=== PATIENT | male | born 1985 | race Caucasian/White ===

== ENCOUNTER 2024-06-05 14:01 | Outpatient (AMB) | payer BC, SELFPAY ==
--- NOTE | 2024-06-05 14:06 | A.OFFPC_ITS ---
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 Intake Note: patient here for new patient appointment Loan Clerk Required: No Allergies bactrum Allergy (Unknown, Uncoded 06/05/24 14:11) Hives Tobacco use date assessed: 06/05/24 Dental Screening Dental Screen Date: 06/05/24 Did you have a dental visit in the last 12 months?: No Did you have a dental problem in the last 6 months where you did not have access to dental care?: No Was dental information given to patient?: Patient declined HPI HPI Comments History of Present Illness Details The patient is a 38 y/o male with a past medical history of IBS/IBD presenting to [facility] GI: Follows with GI. He underwent double endoscopy in October. Colonoscopy was normal. He was found to have ulcer on endoscopy. The ulcer healed with natural remedies however they did find barretts and EOE. He was evaluated in [place] [facility] i n Oct for worsening abdominal pain. Intermittently must miss work if symptoms flare ROS CONSTITUTIONAL: Denies weight loss, fever and chills. HEENT: Denies changes in vision and hearing. RESPIRATORY: Denies SOB and cough. CV: Denies palpitations and CP GI: see HPI : Denies dysuria and urinary frequency. MSK: Denies new myalgia and joint pain. SKIN: Denies rash and pruritus. NEUROLOGICAL: Denies headache PSYCHIATRIC: Denies recent changes in mood. PHYSICAL EXAM: GENERAL: Alert and oriented x 3. NAD EYES: EOMI. Anicteric. HENT: Moist mucous membranes. No scleral icterus. No cervical lymphadenopathy. LUNGS: Clear to auscultation bilaterally. CARDIOVASCULAR: Regular rate and rhythm. No murmur. No JVD. ABDOMEN: Soft, non-tender +bs EXTREMITIES: No edema. Non-tender. SKIN: No rashes or lesions. Warm. NEUROLOGIC: No focal neurological deficits. CN II-XII grossly intact PSYCHIATRIC: Cooperative. Appropriate mood and affect [facility] Medical History (Updated 06/10/24 @ 10:56 by Charlee Chappell MD) Shingles Peptic ulcer Surgical History (Updated 06/05/24 @ 14:22 by Vanessa Moncada) History of placement of ear tubes Family History (Updated 06/05/24 @ 14:24 by Vanessa Moncada) Father Asthma High blood pressure High cholesterol Diabetes Mother High blood pressure High cholesterol Diabetes Brother Testicular cancer Social History Housing: House Patient Tobacco Use Status: Never used Tobacco e-Cigarette/Vaping Use: Never Used Second Hand Smoke Exposure: No service: No Current occupational status: employed Current occupation: postal service Current occupational exposures/hazards: No Cognitive needs: No Hearing needs: Yes Vision needs: No Questionnaire PHQ-9 Over the last 2 weeks, how often have you been bothered by any of the following problems? 1. Little interest or pleasure in doing things: not at all 2. Feeling down, depressed, or hopeless: not at all 3. Trouble falling or staying asleep, or sleeping too much: not at all 4. Feeling tired or having little energy: not at all 5. Poor appetite or overeating: not at all 6. Feeling bad about yourself - or that you are a failure or have let yourself or your family down: not at all 7. Trouble concentrating on things, such as reading the newspaper or watching television: not at all 8. Moving or speaking so slowly that other people could have noticed. Or the opposite - being so fidgety or restless that you have been moving around a lot more than usual: not at all 9. Thoughts that you would be better off or of hurting yourself in some way: not at all Total score: 0 Depression Screening Interpretation: Negative Depression Screening Done: Yes 23762 - PHQ-9 Billing: Yes Source: Developed by Drs. Last Jacob, Maria Del Rosario Hines, Lul Kevin and colleagues, with an educational staci from [employer]. Thrive Questionnaire Date Thrive assessed: 06/05/24 I am a: Patient What is your living situation today?: I have a steady place to live Within the past 12 months, did the food you bought not last and you didn't have the money to get more?: Never true Within the past 12 months, did you worry whether your food would run out before you got money to buy more?: Never true Do you have trouble paying for medicines?: No Do you have trouble getting transportation to medical appointments?: No Do you have trouble paying your heating and electricity bill?: No Do you have trouble taking care of your child, family member or friend?: No Do you have trouble with day-to-day activities such as bathing, preparing meals, shopping, managing finances, etc.?: No Are you currently unemployed and looking for a job?: No Are you interested in more education?: No Please select the resources that you would like help with: None Currently or been in a relationship where the following occur: No concerns reported THRIVE Score: 0 AUDIT C Alcohol Use Questionnaire (AUDIT-C) 1. How often do you have a drink containing alcohol?: Never Total Score: 0 MOSHE-7 AMB Questionnaire MOSHE-7 Date MOSHE - 7 assessed: 06/05/24 Feeling nervous, anxious, or on edge: 0 = Not at all Not being able to stop or control worryin = Not at all Worrying too much about different things: 0 = Not at all Trouble relaxin = Not at all Being so restless that it is hard to sit still: 0 = Not at all Feeling afraid as if something awful might happen: 0 = Not at all Source: Developed by Drs. Last Jacob, Maria Del Rosario Hines, Lul Kevin and colleagues, with an educational staci from [employer]. MOSHE-7 Assessment Billing MOSHE-7 Assessment Tool: MOSHE-7 Assessment 33946 Physical exam (Primary Care) Vital Signs: Last Vital Signs Temp 98.0 F 06/05/24 14:18 Pulse 50 06/05/24 14:18 Resp 16 06/05/24 14:18 BP 114/60 06/05/24 14:18 Pulse Ox 97 06/05/24 14:18 Oxygen Delivery Method Room Air 06/05/24 14:18 BMI result Body Mass Index 26.0 Tobacco/Smoking Status: Tobacco use Status Tobacco use date assessed 06/05/24 06/05/24 14:18 Patient Tobacco Use Status Never used Tobacco 06/05/24 14:18 e-Cigarette/Vaping Use Never Used 06/05/24 14:18 PHQ-9: PHQ-9 Score PHQ-9: Total score 0 06/10/24 10:57 Depression Screening Interpretation: Negative Thrive Assessment: Date of Thrive Assessment Date Thrive assessed 06/05/24 06/05/24 14:20 Currently or been in a relationship where the following occur: No concerns reported Assessment and Plan Assessment & Plan (1) Establishing care with new doctor, encounter for: Code(s): Z76.89 - Persons encountering health services in other specified circumstances Plan: 39 y/o to establish care. pmh, surgical, social and family history reviewed. (2) History of peptic ulcer: Code(s): Z87.11 - Personal history of peptic ulcer disease Plan: recommend ppi therapy. Patient treating naturally (3) Barretts esophagus: Code(s): K22.70 - Millan's esophagus without dysplasia Qualifiers: Millan's esophagus type: with dysplasia of unspecified degree Qualified Code(s): K22.719 - Millan's esophagus with dysplasia, unspecified Plan: repeat endoscopy at one year Orders: Orders UA and rflx microscopic 06/05/24 K22.70 - Millan's esophagus without dysplasia, Z13.0 - Encounter for screening for diseases of the blood and blood- forming organs and certain disorders involving the immune mechanism, Z13.220 - Encounter for screening for lipoid disorders, Z13.228 - Encounter for screening for other metabolic disorders, Z87.11 - Personal history of peptic ulcer disease Lipid Panel 06/05/24 K22.70 - Millan's esophagus without dysplasia, Z13.0 - Encounter for screening for diseases of the blood and blood-forming organs and certain disorders involving the immune mechanism, Z13.220 - Encounter for screening for lipoid disorders, Z13.228 - Encounter for screening for other metabolic disorders, Z87.11 - Personal history of peptic ulcer disease Complete Blood Count Auto Diff 06/05/24 K22.70 - Millan's esophagus without dysplasia, Z13.0 - Encounter for screening for diseases of the blood and blood- forming organs and certain disorders involving the immune mechanism, Z13.220 - Encounter for screening for lipoid disorders, Z13.228 - Encounter for screening for other metabolic disorders, Z87.11 - Personal history of peptic ulcer disease Comprehensive Met. Panel 06/05/24 K22.70 - Millan's esophagus without dysplasia, Z13.0 - Encounter for screening for diseases of the blood and blood-forming organs and certain disorders involving the immune mechanism, Z13.220 - Encounter for screening for lipoid disorders, Z13.228 - Encounter for screening for other metabolic disorders, Z87.11 - Personal history of peptic ulcer disease TSH reflex Free T4 06/05/24 K22.70 - Millan's esophagus without dysplasia, Z13.0 - Encounter for screening for diseases of the blood and blood-forming organs and certain disorders involving the immune mechanism, Z13.220 - Encounter for screening for lipoid disorders, Z13.228 - Encounter for screening for other metabolic disorders, Z87.11 - Personal history of peptic ulcer disease Coding Level of Care Code New Pt Level 4 (38018) Diagnoses Establishing care with new doctor, encounter for Z76.89 History of peptic ulcer Z87.11 Millan's esophagus with dysplasia K22.719 Millan's esophagus type: with dysplasia of unspecified degree Additional Codes MOSHE-7 Assessment Billing - MOSHE-7 Assessment Tool: MOSHE-7 Assessment 78205 ([id number])
[2024-06-05 14:18] VITALS: BP 114/60; PULSE 50; RESP 16; TEMP 36.7; O2SAT 97; BMI 26.0
== END 2024-06-05 14:56 | disposition home or self-care (01) ==
PROVIDERS: Visit Provider Internal Medicine
DX: K22.719 Barrett's esophagus with dysplasia, unspecified (principal); Z76.89 Persons encountering health services in other specified circumstances; Z87.11 Personal history of peptic ulcer disease
CPT/HCPCS: 99204

== ENCOUNTER 2024-12-11 10:04 | Outpatient (AMB) | payer BC, SELFPAY ==
--- NOTE | 2024-12-11 10:16 | MHC.PC.OV ---
Vital Signs 12/11/24 10:19 Height 6 ft 1 in Weight 198 lb 6 oz BMI 26.2 BP 100/64 Blood Pressure Location Lt brachial Position Sitting Respiration 16 Pulse 62 Pulse Source Pulse Oximeter Pulse Oximetry (%) 98 Oxygen Delivery Method Room Air Intake Visit Reasons: cpe Intake Note: Physical Surg Tech Required: No Allergies bactrum Allergy (Unknown, Uncoded 12/11/24 10:17) Hives Medication List - Last Reconciled 12/11/24 by Charlee Chappell MD No Known Home Meds Tobacco use date assessed: 12/11/24 Dental Screening Dental Screen Date: 06/05/24 HPI HPI Comments History of Present Illness Details The patient is a 39 y/o male with a past medical history of IBS/IBD presenting for CPE. GI: Follows with GI. He underwent double endoscopy in October. Colonoscopy was normal. He was found to have ulcer on endoscopy. The ulcer healed with natural remedies however they did find barretts and EOE. He was evaluated in [place] ER in Oct for worsening abdominal pain. Intermittently must miss work if symptoms flare Golfing frequently. Follows with a sports medicine doctor. Watches testosterone levels as history of anabolic steroid use. Dental UTD Declines Tdap ROS CONSTITUTIONAL: Denies weight loss, fever and chills. HEENT: Denies changes in vision and hearing. RESPIRATORY: Denies SOB and cough. CV: Denies palpitations and CP GI: see HPI : Denies dysuria and urinary frequency. MSK: Denies new myalgia and joint pain. SKIN: Denies rash and pruritus. NEUROLOGICAL: Denies headache PSYCHIATRIC: Denies recent changes in mood. PHYSICAL EXAM: GENERAL: Alert and oriented x 3. NAD EYES: EOMI. Anicteric. HENT: Moist mucous membranes. No scleral icterus. No cervical lymphadenopathy. LUNGS: Clear to auscultation bilaterally. CARDIOVASCULAR: Regular rate and rhythm. No murmur. No JVD. ABDOMEN: Soft, non-tender +bs EXTREMITIES: No edema. Non-tender. SKIN: No rashes or lesions. Warm. NEUROLOGIC: No focal neurological deficits. CN II-XII grossly intact PSYCHIATRIC: Cooperative. Appropriate mood and affect [facility] Medical History Shingles Peptic ulcer Surgical History Hx of colonoscopy H/O endoscopy History of placement of ear tubes Family History Father Asthma High blood pressure High cholesterol Diabetes Mother High blood pressure High cholesterol Diabetes Brother Testicular cancer Social History Housing: House Alcohol intake: never Patient Tobacco Use Status: Never used Tobacco e-Cigarette/Vaping Use: Never Used Second Hand Smoke Exposure: No service: No Current occupational status: employed Current occupation: postal service Current occupational exposures/hazards: No Cognitive needs: No Hearing needs: Yes (Hearing loss both ears.) Vision needs: No Questionnaire PHQ-9 Over the last 2 weeks, how often have you been bothered by any of the following problems? 1. Little interest or pleasure in doing things: not at all 2. Feeling down, depressed, or hopeless: not at all 3. Trouble falling or staying asleep, or sleeping too much: not at all 4. Feeling tired or having little energy: not at all 5. Poor appetite or overeating: not at all 6. Feeling bad about yourself - or that you are a failure or have let yourself or your family down: not at all 7. Trouble concentrating on things, such as reading the newspaper or watching television: not at all 8. Moving or speaking so slowly that other people could have noticed. Or the opposite - being so fidgety or restless that you have been moving around a lot more than usual: not at all 9. Thoughts that you would be better off or of hurting yourself in some way: not at all Total score: 0 Depression Screening Interpretation: Negative Depression Screening Done: Yes 54180 - PHQ-9 Billing: Yes Source: Developed by Drs. Last Jacob, Maria Del Rosario Hines, Lul Kevin and colleagues, with an educational staci from [employer]. Thrive Questionnaire Date Thrive assessed: 12/04/24 I am a: Patient What is your living situation today?: I have a steady place to live Within the past 12 months, did the food you bought not last and you didn't have the money to get more?: Never true Within the past 12 months, did you worry whether your food would run out before you got money to buy more?: Never true Do you have trouble paying for medicines?: No Do you have trouble getting transportation to medical appointments?: No Do you have trouble paying your heating and electricity bill?: No Do you have trouble taking care of your child, family member or friend?: No Do you have trouble with day-to-day activities such as bathing, preparing meals, shopping, managing finances, etc.?: No Are you currently unemployed and looking for a job?: No Are you interested in more education?: No Please select the resources that you would like help with: None Currently or been in a relationship where the following occur: No concerns reported THRIVE Score: 0 AUDIT C Alcohol Use Questionnaire (AUDIT-C) 1. How often do you have a drink containing alcohol?: Never 3. How often do you have six or more drinks on one occasion?: Never Total Score: 0 MOSHE-7 AMB Questionnaire MOSHE-7 Date MOSHE - 7 assessed: 12/11/24 Feeling nervous, anxious, or on edge: 0 = Not at all Not being able to stop or control worryin = Not at all Worrying too much about different things: 0 = Not at all Trouble relaxin = Not at all Being so restless that it is hard to sit still: 0 = Not at all Becoming easily annoyed or irritable: 0 = Not at all Feeling afraid as if something awful might happen: 0 = Not at all Total MOSHE-7 score (0-4 normal; 5-9 mild; 10-14 moderate; 15-21 severe): 0 Source: Developed by Drs. Last Jacob, Maria Del Rosario Hines, Lul Kevin and colleagues, with an educational staci from [employer]. MOSHE-7 Assessment Billing MOSHE-7 Assessment Tool: MOSHE-7 Assessment 08576 Physical exam (Primary Care) Vital Signs: Last Vital Signs Pulse 62 12/11/24 10:19 Resp 16 12/11/24 10:19 BP 100/64 12/11/24 10:19 Pulse Ox 98 12/11/24 10:19 Oxygen Delivery Method Room Air 12/11/24 10:19 BMI result Body Mass Index 26.2 Tobacco/Smoking Status: Tobacco use Status Tobacco use date assessed 12/11/24 12/11/24 10:22 Patient Tobacco Use Status Never used Tobacco 12/11/24 10:22 e-Cigarette/Vaping Use Never Used 12/11/24 10:22 PHQ-9: PHQ-9 Score PHQ-9: Total score 0 12/11/24 10:26 Depression Screening Interpretation: Negative Thrive Assessment: Date of Thrive Assessment Date Thrive assessed 12/04/24 12/11/24 10:22 Currently or been in a relationship where the following occur: No concerns reported Coding Level of Care Code Est Pt Prev Care 18-39y(02133) Diagnoses Physical exam Z00.00 Additional Codes MOSHE-7 Assessment Billing - MOSHE-7 Assessment Tool: MOSHE-7 Assessment 75754 ([id number]) PHQ-9 - 82408 - PHQ-9 Billing: Yes ([id number]) Assessment & Plan Assessment & Plan (1) Physical exam: Code(s): Z00.00 - Encounter for general adult medical examination without abnormal findings Category: Medical Plan: 39 y/o for physical exam Interval history reviewed Labs ordered. Declines Tdap Orders: Orders Testosterone, Free/Total Today Z92.241 - Personal history of systemic steroid therapy
[2024-12-11 10:19] VITALS: BP 100/64; PULSE 62; RESP 16; O2SAT 98; BMI 26.2
--- OUTSIDE RECORDS SUMMARY | 2024-12-11 11:26 | XMS_ITS ---
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 active 2024-06-25 ProblemAct [facility] Seasonal allergic rhinitis due to pollen active 2024-06-25 ProblemAct [facility] Allergy to avocado active 2024-06-25 ProblemAct [facility] Allergic rhinitis due to animal dander active 2024-06-25 ProblemAct [facility] Immunizations Vaccine Date Source Lot Number Status Tdap 02/25/2018 CCT [id number] completed Encounters Encounter Type Encounter Reason Primary Diagnosis Location Date Ambulatory [facility] 06/25/2024 Ambulatory ELEVATED BILIRUBIN ELEVATED BILIRUBIN Pro [facility] 11/26/2023 Ambulatory GI Consult [facility] [place] 12/07/2022 Care Team Organization Name Specialty Phone Email Start Date End [facility] 06/25/2024 [facility] Ch[facility]ell [facility] 06/25/2024 [facility] 11/21/2023 03/10/[address] [place] [address] [facility] 11/21/2023 [facility] 11/09/2023 [facility] 12/13/2022 12/13/2022 [facility] BENITO BRIGHT Primary Care 12/07/202211/24 [facility] BENITO BRIGTH Primary Care 12/07/202211/24 [facility] BENITO BRIGHT Primary Care 12/07/2022
--- OUTSIDE RECORDS SUMMARY | 2024-12-11 11:26 | XMS_ITS | Clinical Summary ---
Author Organization [facility] Address [address] [place] [address] Care Team Providers Care Managed Care Manager Name Role Phone Charlee Chappell MD Primary Care Provider [phone] Allergies Active Allergy Reactions Criticality Noted Date Comments Sulfamethoxazole-Trimethoprim 2023 Sulfa Antibiotics 10/31/2023 Medications Medication Sig Dispensed Refills Start Date End Date Status polyethylene glycol 3350 (SUFLAVE) 178.7 g solution Take 2,000 mL (1 kit total) by mouth See admin instructions. 1 kit 0 10/31/2023 Active Additional Information Patient not taking.Reason: Other, Reported on 12/26/2023 bisacodyl (Dulcolax) 5 MG EC tablet Take 1 tablet (5 mg total) by mouth daily as needed for up to 4 doses. 4 tablet 0 10/31/2023 Active Additional Information Patient not taking.Reason: Other, Reported on 12/26/2023 Social History Tobacco Use Types Packs/Day Years Used Date Smoking Tobacco: Never Smokeless Tobacco: Never Tobacco Cessation:Counseling Given: Not Answered Sex and Gender Information Value Date Recorded Sex Assigned at Not on file Gender Identity Not on file Sexual Orientation Not on file Job Start Date Occupation Industry Not on file Not on file Not on file Last Filed Vital Signs Vital Sign Reading Time Taken Comments Blood Pressure 110/72 06/12/2024 3:09 PM EDT Pulse 90 06/12/2024 3:09 PM EDT Temperature - - Respiratory Rate - - Oxygen Saturation 99% 06/12/2024 3:09 PM EDT Inhaled Oxygen Concentration - - Weight 89.8 kg (198 lb) 06/12/2024 3:09 PM EDT Height 185.4 cm (6' 1 ) 06/12/2024 3:09 PM EDT Body Mass Index 26.12 06/12/2024 3:09 PM EDT Plan of Treatment Health Maintenance Due Date Last Done Comments Hepatitis B Vaccines (1 of 3 - 3-dose series) 1987 Hepatitis C Screening 1987 COVID-19 Vaccine (#1) 1987 Depression Screening 1999 BMI Counseling 2005 Preventative Health Evaluation 2005 Influenza Vaccine (#1) 2024 DTap / Tdap / Td (2 - Td or Tdap) 02/26/2028 018 Pneumococcal Vaccine Aged Out No long er eligible based on patient's age to complete this topic RSV Ped < 20 months Aged Out No longe r eligible based on patient's age to complete this topic Care Teams Managed Care Manager Relationship Specialty Start Date End Date Charlee Chappell MD PCP - General Internal Medicine 06/12/24
--- OUTSIDE RECORDS SUMMARY | 2024-12-11 11:26 | XMS_ITS | Patient Health Record ---
Author Organization [facility] Address [address] [place] [address] Support Name Relationship Address Phone Antonio Wall Guarantor Unknown Reason For Referral No Information Plan Of Treatment No Information Insurance Providers Payer Name Payer Address Payer Phone Subscriber Number Group Number Insured Name Patient Relationship to Insured Coverage Start Date Coverage End Date CARES Act Antonio Wall Self - patient is the insured
--- OUTSIDE RECORDS SUMMARY | 2024-12-11 11:27 | XMS_ITS | Clinical Summary ---
Author Organization Formerly [facility] Address [address] [place] [address] Care Team Providers Care Picu Nurse Name Role Phone Unknown Unavailable Charlee Chappell MD Primary Care Provider [phone] Allergies Active Allergy Reactions Criticality Noted Date Comments Sulfa Antibiotics Hives,Shortness Of Breath,Rash/Dermatitis High 02/25/2018 Sulfamethoxazole-Trimethopri m Anaphylaxis,Hives,Shortne ss Of Breath,Rash/Dermatitis High 12/07/2022 Medications Medication Sig Dispensed Refills Start Date End Date Status EPINEPHrine 0.3 mg/0.3 mL IJ auto-injectionIndica tions:Allergy to avocado Inject 0.3 mL (0.3 mg total) into the thigh once as needed for allergic reaction. 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 06/25/2024 Allergic rhinitis due to dust mite 06/25/2024 Eosinophilic esophagitis 06/25/2024 Immunizations Name Administration Dates Next Due Tdap 02/25/2018 Family History Medical History Relation Name Comments Venom Allergy Brother Allergic rhinitis Father Asthma Father Diabetes Mother Kenya Wall Food Allergy Neg Hx Relation Name Status Comments Brother Father Mother Kenya Wall Social History Tobacco Use Types Packs/Day Years Used Date Smoking Tobacco: Never Smokeless Tobacco: Never Tobacco Cessation:Counseling Given: Not Answered Alcohol Use Standard Drinks/Week Comments Never 0 (1 standard drink = 0.6 oz pur e alcohol) AUDIT-C Answer Date Recorded Frequency of Alcohol Consumption Never 03/22/2018 Average Number of Drinks Not on file 018 Frequency of Binge Drinking Not on file 02/25 Sex and Gender Information Value Date Recorded Sex Assigned at Not on file Gender Identity Not on file Sexual Orientation Not on file Last Filed Vital Signs Vital Sign Reading Time Taken Comments Blood Pressure 126/58 02/25/2018 5:34 PM EDT Pulse 72 02/25/2018 5:34 PM EDT Temperature - - Respiratory Rate 18 02/25/2018 5:34 PM EDT Oxygen Saturation 98% 02/25/2018 5:34 PM EDT Inhaled Oxygen Concentration - - Weight 88.9 kg (196 lb) 06/25/2024 8:54 AM EDT Height 185.4 cm (6' 1 ) 06/25/2024 8:54 AM EDT Body Mass Index 25.86 06/25/2024 8:54 AM EDT Plan of Treatment Health Maintenance Due Date Last Done Comments Hepatitis C Virus Screening 1987 HIV Screening 2000 Hepatitis B Vaccines (1 of 3 - 19+ 3-dose series) 2006 Influenza Vaccine 04/26/2024 COVID-19 Vaccine ( - 2023-2 5 season) 2024 DTaP/Tdap/Td Vaccines (2 - T d or Tdap) 02/26/2028 02/25/2018 HPV Vaccines Aged Out No longer eligi ble based on patient's age to complete this topic Pneumococcal Vaccine: Pediat deborah (0-5 Years) and At-Risk Patients (6 to 49 Years) Aged Out No longer eligible b ased on patient's age to complete this topic Care Teams Picu Nurse Relationship Specialty Start Date End Date Charlee Chappell MD [address] [place] [address] CLIFTON Russell [phone] PCP - General Internal Medicine 06/25/24 Unknown Unknow Provider Address 12/06/22
== END 2024-12-11 10:44 | disposition home or self-care (01) ==
LOC: HO.HMCFM 10:04
PROVIDERS: PCP Internal Medicine; Visit Provider Internal Medicine
DX: Z00.00 Encounter for general adult medical examination without abnormal findings (principal)

== ENCOUNTER → 2024-12-11 10:04 | Outpatient (BNVA) | payer BC, SELFPAY | PROVIDERS: PCP Internal Medicine; Visit Provider Internal Medicine | DX: Z00.00 Encounter for general adult medical examination without abnormal findings (principal); Z92.241 Personal history of systemic steroid therapy | CPT/HCPCS: 96127 ==

== ENCOUNTER 2024-12-31 10:02 | Outpatient (AMB) | payer BC, SELFPAY ==
--- NOTE | 2024-12-31 10:12 | A.OFFPC_ITS ---
Vital Signs 12/31/24 10:15 Height 6 ft 1 in Weight 198 lb BMI 26.1 BP 112/64 Blood Pressure Location Lt brachial Position Sitting Respiration 16 Pulse 67 Pulse Source Pulse Oximeter Pulse Oximetry (%) 97 Oxygen Delivery Method Room Air Intake Visit Reasons: BNH L thumb stitches out Intake Note: Stitches out left thumb. Had 3 stitches put in 12/18/24. Director Sales And Marketing Required: No Allergies bactrum Allergy (Unknown, Uncoded 12/31/24 10:19) Hives Medication List - Last Reconciled 12/31/24 by Charlee Chappell MD No Known Home Meds Tobacco use date assessed: 12/31/24 Dental Screening Dental Screen Date: 06/05/24 HPI HPI Comments History of Present Illness Details The patient is a 39 y/o male with a past medical history of IBS/IBD presenting follow up Received stitches to left 2nd finger 12 days ago-3 stitches. One fell out since. Healing well GI: Follows with GI. He underwent double endoscopy in October. Colonoscopy was normal. He was found to have ulcer on endoscopy. The ulcer healed with natural remedies however they did find barretts and EOE. He was evaluated in [place] [facility] in Oct for worsening abdominal pain. Intermittently must miss work if symptoms flare Golfing frequently. Follows with a sports medicine doctor. Watches testosterone levels as history of anabolic steroid use. Dental UTD Declines Tdap ROS see HPI PHYSICAL EXAM: GENERAL: Alert and oriented x 3. NAD EYES: EOMI. Anicteric. HENT: Moist mucous membranes. No scleral icterus. No cervical lymphadenopathy. LUNGS: Clear to auscultation bilaterally. CARDIOVASCULAR: Regular rate and rhythm. No murmur. No JVD. ABDOMEN: Soft, non-tender +bs EXTREMITIES: No edema. Non-tender. SKIN: Well healed 1.0 cm lac of left second finger NEUROLOGIC: No focal neurological deficits. CN II-XII grossly intact PSYCHIATRIC: Cooperative. Appropriate mood and affect [facility] Medical History Shingles Peptic ulcer Surgical History Hx of colonoscopy H/O endoscopy History of placement of ear tubes Family History Father Asthma High blood pressure High cholesterol Diabetes Mother High blood pressure High cholesterol Diabetes Brother Testicular cancer Social History Housing: House Alcohol intake: never Patient Tobacco Use Status: Never used Tobacco e-Cigarette/Vaping Use: Never Used Second Hand Smoke Exposure: No service: No Current occupational status: employed Current occupation: postal service Current occupational exposures/hazards: No Cognitive needs: No Hearing needs: Yes (Hearing loss both ears.) Vision needs: No Questionnaire Thrive Questionnaire Date Thrive assessed: 12/04/24 I am a: Patient What is your living situation today?: I have a steady place to live Within the past 12 months, did the food you bought not last and you didn't have the money to get more?: Never true Within the past 12 months, did you worry whether your food would run out before you got money to buy more?: Never true Do you have trouble paying for medicines?: No Do you have trouble getting transportation to medical appointments?: No Do you have trouble paying your heating and electricity bill?: No Do you have trouble taking care of your child, family member or friend?: No Do you have trouble with day-to-day activities such as bathing, preparing meals, shopping, managing finances, etc.?: No Are you currently unemployed and looking for a job?: No Are you interested in more education?: No Please select the resources that you would like help with: None Currently or been in a relationship where the following occur: No concerns reported THRIVE Score: 0 MOSHE-7 AMB Questionnaire MOSHE-7 Date MOSHE - 7 assessed: 12/11/24 Source: Developed by Drs. Last Jacob, Maria Del Rosario Hines, Lul Kevin and colleagues, with an educational staci from [employer]. Physical exam (Primary Care) Vital Signs: Last Vital Signs Pulse 67 12/31/24 10:15 Resp 16 12/31/24 10:15 BP 112/64 12/31/24 10:15 Pulse Ox 97 12/31/24 10:15 Oxygen Delivery Method Room Air 12/31/24 10:15 BMI result Body Mass Index 26.1 Tobacco/Smoking Status: Tobacco use Status Tobacco use date assessed 12/31/24 12/31/24 10:19 Patient Tobacco Use Status Never used Tobacco 12/31/24 10:19 e-Cigarette/Vaping Use Never Used 12/31/24 10:19 Thrive Assessment: Date of Thrive Assessment Date Thrive assessed 12/04/24 12/31/24 10:13 Currently or been in a relationship where the following occur: No concerns reported Coding Level of Care Code Est Pt Level 3 (76933) Diagnoses Laceration of left index finger without foreign body without damage to nail, subsequent encounter S61.211D Damage to nail status: without damage Encounter type: subsequent encounter Finger: index finger Foreign body presence: without foreign body Laterality: left Assessment & Plan Assessment & Plan (1) Finger laceration: Code(s): S61.219A - Laceration without foreign body of unspecified finger without damage to nail, initial encounter Category: Medical Qualifiers: Damage to nail status: without damage Encounter type: subsequent encounter Finger: index finger Foreign body presence: without foreign body Laterality: left Qualified Code(s): S61.211D - Laceration without foreign body of left index finger without damage to nail, subsequent encounter Plan: 2 stitches removed successfully No drainage, dry well healing. return prn
[2024-12-31 10:15] VITALS: BP 112/64; PULSE 67; RESP 16; O2SAT 97; BMI 26.1
--- OUTSIDE RECORDS SUMMARY | 2024-12-31 11:42 | XMS_ITS | Clinical Summary ---
Author Organization [facility] Address [address] [place] [address] Care Team Providers Care Aws Developer Name Role Phone Charlee Chappell MD Primary Care Provider [phone] Allergies Active Allergy Reactions Criticality Noted Date [...] age to complete this topic Care Teams Aws Developer Relationship Specialty Start Date End Date Charlee Chappell MD PCP - General Internal Medicine 06/12/24
--- OUTSIDE RECORDS SUMMARY | 2024-12-31 11:42 | XMS_ITS | Patient Health Record ---
Author Organization [facility] Address [address] [place] [address] Support Name Relationship Address Phone Antonio Wall Guarantor Unknown [phone] Reason For Referral No Information Plan Of Treatment No Information Insurance Providers Payer Name Payer Address Payer Phone Subscriber Number Group Number Insured Name Patient Relationship to Insured Coverage Start Date Coverage End Date CARES Act Antonio Wall Self - patient is the insured
--- OUTSIDE RECORDS SUMMARY | 2024-12-31 11:42 | XMS_ITS | Clinical Summary ---
Author Organization [facility] Address [address] [place] [address] Care Team Providers Care Injection Maintenance Technician Name Role Phone Unknown Unavailable Charlee Chappell MD Primary Care Provider [phone] Allergies Active Allergy Reactions Criticality Noted Date [...] age to complete this topic Care Teams Injection Maintenance Technician Relationship Specialty Start Date End Date Charlee Chappell MD [address] [place] [address] [place] Russell [phone] PCP - General Internal Medicine 06/25/24 Unknown Unknow Provider Address 12/06/22
== END 2024-12-31 10:30 | disposition home or self-care (01) ==
LOC: HO.HMCFM 10:02
PROVIDERS: PCP Internal Medicine; Visit Provider Internal Medicine
DX: S61.211D Laceration without foreign body of left index finger without damage to nail, subsequent encounter (principal)

== ENCOUNTER → 2024-12-31 10:02 | Outpatient (BNVA) | payer BC, SELFPAY | PROVIDERS: PCP Internal Medicine; Visit Provider Internal Medicine ==

== ENCOUNTER 2024-12-31 10:38 | Outpatient (REF) | payer BC, SELFPAY ==
--- OUTSIDE RECORDS SUMMARY | 2024-12-31 12:34 | XMS_ITS | Clinical Summary ---
Author Organization Formerly [facility] Address [address] [place] [address] Care Team Providers Care Solaris Administrator Name Role Phone Charlee Chappell MD Primary Care Provider [phone] Allergies Active Allergy Reactions Criticality Noted Date [...] age to complete this topic Care Teams Solaris Administrator Relationship Specialty Start Date End Date Charlee Chappell MD PCP - General Internal Medicine 06/12/24
--- OUTSIDE RECORDS SUMMARY | 2024-12-31 12:34 | XMS_ITS | Clinical Summary ---
Author Organization [facility] Address [address] [place] [address] Care Team Providers Care Building Consultant Name Role Phone Unknown Unavailable Charlee Chappell MD Primary Care Provider [phone] Allergies Active Allergy Reactions Criticality Noted Date [...] age to complete this topic Care Teams Building Consultant Relationship Specialty Start Date End Date Charlee Chappell MD [address] [place] [address] [place] Russell [phone] PCP - General Internal Medicine 06/25/24 Unknown Unknow Provider Address 12/06/22
[2024-12-31 13:57] LABS: MANUAL DIFF FLAG NO
[2024-12-31 14:07] LABS: Basophils Absolute Auto 0.1 X10*3/uL (0.0-0.2); Basophils Percent Auto 0.9 % (0-2); Eosinophils Absolute Auto 0.2 X10*3/uL (0.0-0.4); Eosinophils Percent Auto 2.2 % (0-4); Hematocrit 45.8 % (42.0-52.0); Hemoglobin 15.3 g/dl (14.0-18.0); Imm Gran Abs Auto 0.02 X10*3/uL (0.00-0.03); Imm Gran Pct Auto 0.3 % (0.0-0.4); Lymphocytes Percent Auto 29.5 % (20-40); Mean Corpuscular HGB Conc 33.4 g/dl (31.0-36.0); Mean Corpuscular Hemoglobin 31.4 pg (27.0-33.0); Mean Corpuscular Volume 93.9 fL (80.0-98.0); Mean Platelet Volume 11.9 fL (9.4-12.4); Monocytes Absolute Auto 1.3 X10*3/uL (0.1-1.2); Monocytes Percent Auto 18.5 % (2-11); Neutrophils Absolute Auto 3.3 x10*3/uL (2.0-8.3); Neutrophils Percent Auto 48.6 % (45-73); Platelet Count 157 X10*3/uL (160-400); Red Blood Count 4.88 X10*6/uL (4.60-5.80); Red Cell Distribution Width 12.1 % (11.0-16.0); White Blood Count 6.8 X10*3/uL (4.8-10.8)
[2024-12-31 14:08] LABS: Appearance Urine Clear; Color Urine Yellow; Glucose Urine UA Negative (Negative); Leukocyte Esterase Urine Negative (Negative); Nitrite Urine Negative (Negative); PH 6.5 (5.0-9.0); Specific Gravity - Urine >= 1.030 (1.005-1.025); Urine Blood Negative (Negative); Urine Ketones Negative (Negative); Urine Protein Negative (Neg-Trace)
[2024-12-31 14:44] LABS: TSH reflex Free T4 0.98 uIU/mL (0.32-4.0)
[2024-12-31 14:51] LABS: Anion Gap 10 (12-20)
[2024-12-31 15:01] LABS: Alanine Aminotransferase 29 U/L (0-40); Albumin Level 4.3 g/dL (3.5-5.0); Alkaline Phosphatase 51 U/L (39-117); Aspartate Amino Transferase 35 U/L (5-37); Bilirubin Total 1.8 mg/dL (0.0-1.0); Blood Urea Nitrogen 14 mg/dL (9-16); Calcium 9.4 mg/dL (8.4-10.2); Carbon Dioxide 29 mmol/L (22-29); Chloride 106 mmol/L (96-108); Cholesterol 161 mg/dL (<200); Estimated Glomerular Filt Rate > 60; Glucose Random 93 mg/dL (60-115); HDL Cholesterol 62 mg/dL (>40); LDL Cholesterol Calculated 89 mg/dL (<100); Potassium 3.9 mmol/L (3.3-5.1); Sodium 141 mmol/L (135-145); Total Protein 7.5 g/dL (6.5-8.0); Triglycerides 52 mg/dL (<150)
[2025-01-07 14:28] LABS: Testosterone, Free 61 pg/mL (35.0-155.0); Testosterone, Total 497 ng/dL (250-1100)
== END 2024-12-31 10:39 | disposition home or self-care (01) ==
LOC: HO.WFDLDS 10:38
PROVIDERS: Visit Provider Internal Medicine
DX: K22.70 Barrett's esophagus without dysplasia (principal); Z87.11 Personal history of peptic ulcer disease; Z13.228 Encounter for screening for other metabolic disorders; Z13.220 Encounter for screening for lipoid disorders; Z13.0 Encounter for screening for diseases of the blood and blood-forming organs and certain disorders involving the immune mechanism; Z92.241 Personal history of systemic steroid therapy
CPT/HCPCS: 36415; 80053; 80061; 81003; 84402; 84403; 84443; 85025